=== PATIENT | female | born 1945 | race Caucasian/White ===

== ENCOUNTER → 2017-08-17 | Outpatient (CLI) | payer OTHER, MEDICARE | LOC: BMCIMAGING 13:44 | PROVIDERS: ATTEND Family Medicine | DX: M71.21 Synovial cyst of popliteal space [Baker], right knee (principal) ==

== ENCOUNTER → 2017-09-15 | Outpatient (CLI) | payer OTHER, MEDICARE ==
[~2017-09-15] MED LIST: IOPAMIDOL (ISOVUE-300) 100 ML BTL ONE
== END ==
LOC: FIMAGING 11:29
PROVIDERS: ATTEND Surgery
DX: R60.0 Localized edema (principal); D25.9 Leiomyoma of uterus, unspecified; K57.30 Diverticulosis of large intestine without perforation or abscess without bleeding
CPT/HCPCS: 74177; Q9967; 82565-PO